=== PATIENT | male | born 1970 | race Two or more races ===

== ENCOUNTER 2016-12-12 14:19 | Emergency (ER) | payer OTHER ==
[~2016-12-12] VITALS: Ht 162.6 cm; Wt 68.0 kg
[2016-12-12 14:25] VITALS: BP 136/87
[2016-12-12] MEDS ORDERED: Mylanta II UD 30ml ORAL ONE (14:45)
[2016-12-12] MEDS ORDERED: Lidocaine 2% Visc 15ml soln ORAL ONE (14:45)
[2016-12-12] MEDS ORDERED: Famotidine 20 MG/ 2ML VIAL IVP ONE (14:45)
[2016-12-12] MEDS ORDERED: Dicyclomine HCl 10mg/5ml oral soln ORAL ONE (14:45)
[2016-12-12] MEDS ORDERED: Tubing IV Cassette IV ONE (15:07)
[2016-12-12] MEDS ORDERED: NKM (15:37)
[2016-12-12 16:00] LABS: TROPONIN I < 0.30 ng/mL (<=0.30)
[2016-12-12 16:02] LABS: ALANINE AMINOTRANSFERASE 44 U/L (3-41); ALBUMIN/GLOBULIN RATIO 1.5 (1.0-2.7); ANION GAP 13 (5-15); ASPARTATE AMINO TRANSFERASE 27 U/L (5-40); CALCIUM 9.7 mg/dL (8.6-10.2); CARBON DIOXIDE 26 mEQ/L (20-30); CHLORIDE 102 mEQ/L (98-107); GLOMERULAR FILTRATION RATE > 60 mL/min (>60); HEMOLYSIS 7; LIPASE 39 U/L (< 60); POTASSIUM 3.7 mEQ/L (3.4-4.9); SODIUM 141 mEQ/L (135-145); TOTAL PROTEIN 8.1 g/dL (6.6-8.7)
[2016-12-12 16:08] LABS: BASOPHILS % (AUTO) 1.5 % (0.0-2.0); EOSINOPHILS % (AUTO) 0.7 % (0.0-3.0); LYMPHOCYTES % (AUTO) 17.1 % (20.0-45.0); MEAN CORPUSCULAR HEMOGLOBIN 32.1 PG (27.0-31.0); MEAN CORPUSCULAR HGB CONC 34.9 G/DL (32.0-36.0); MEAN CORPUSCULAR VOLUME 92 FL (80-99); MEAN PLATELET VOLUME 16.4 FL (6.5-10.1); NEUTROPHILS % (AUTO) 75.7 % (45.0-75.0); PLATELET COUNT 124 K/UL (150-450); RED BLOOD COUNT 5.02 M/UL (4.70-6.10); RED CELL DISTRIBUTION WIDTH 11.7 % (11.6-14.8); WHITE BLOOD COUNT 9.8 K/UL (4.8-10.8)
[2016-12-12] MEDS ORDERED: Morphine Sulfate 4mg/ml Inj IVP ONE (16:15)
[2016-12-12 17:00] VITALS: BP 125/83
[2016-12-12] MEDS ORDERED: BENTYL10 MG ORAL (17:27)
[2016-12-12] MEDS ORDERED: RANITIDINE HCL150 MG ORAL (17:27)
[2016-12-12 18:10] VITALS: BP 125/83
--- NOTE | 2016-12-12 21:28 | Emergency Room Report ---
History of Present Illness General Chief Complaint: General Complaint Source: Patient Present Illness HPI 46-year-old male presents ED complaining of abdominal pain. States pain started yesterday evening. Pain is epigastric, cramping, nonradiating. 9 out of 10. Denies fevers or chills. Denies chest pain or shortness of breath. No other aggravating relieving factors. Denies any other associated Allergies: Coded Allergies: No Known Allergies (Unverified , 12/12/16) Patient History Past Medical History: none Past Surgical History: none Pertinent Family History: none Social History: Denies: smoking, alcohol use, drug use Immunizations: UTD Reviewed Nursing Documentation: PMH: Agreed, PSxH: Agreed Nursing Documentation-PMH Past Medical History: No Stated History Review of Systems All Other Systems: negative except mentioned in HPI Physical Exam Vital Signs Date Time Temp Pulse Resp B/P (MAP) Pulse Ox O2 Delivery O2 Flow Rate FiO2 12/12/16 14:25 97.3 66 18 136/87 96 Room Air Sp02 EP Interpretation: reviewed, normal General Appearance: no apparent distress, alert, GCS 15, non-toxic Head: normocephalic, atraumatic Eyes: bilateral eye normal inspection, bilateral eye PERRL ENT: hearing grossly normal, normal pharynx, no angioedema, normal voice Neck: full range of motion, supple/symm/no masses Respiratory: chest non-tender, lungs clear, normal breath sounds, speaking full sentences Cardiovascular #1: regular rate, rhythm, no edema Cardiovascular #2: 2+ carotid (R), 2+ carotid (L), 2+ radial (R), 2+ radial (L) , 2+ dorsalis pedis (R), 2+ dorsalis pedis (L) Gastrointestinal: normal bowel sounds, soft, non-distended, no guarding, no rebound, tenderness - epigastric Rectal: deferred Genitourinary: normal inspection, no CVA tenderness Musculoskeletal: back normal, gait/station normal, normal range of motion, non- tender Neurologic: alert, oriented x3, responsive, motor strength/tone normal, sensory intact, speech normal Psychiatric: judgement/insight normal, memory normal, mood/affect normal, no suicidal/homicidal ideation Reflexes: 3+ bicep (R), 3+ bicep (L), 3+ tricep (R), 3+ tricep (L), 3+ knee (R) , 3+ knee (L) Skin: normal color, no rash, warm/dry, well hydrated Lymphatic: no adenopathy Medical Decision Making Diagnostic Impression: Primary Impression: Gastroenteritis ER Course Hospital Course 46-year-old M presents to ED with abdominal pain Differential diagnosis includes-appendicitis, cholecystitis, small bowel obstruction, gastritis, Clinical course Patient placed on stretcher. After initial history and physical I ordered labs , IV fluids, Pepcid, Zofran, GI cocktail Labs - no leukocytosis, electrolytes ok, LFTs normal Patient states pain persists, given IV morphine and CT scan ordered CT scan shows no acute pathology , evidence of enteritis Upon reassessment, patient states pain has improved. Given improvement in symptoms and lack of acute findings, I believe patient can be safely discharged to home. Patient agrees with plan I feel this is a highly complex case requiring extensive working including EKG/ Rhythm strip, Xray/CT/US, Blood/urine lab work, repeat exams while in ED, and administration of strong opiates/narcotics for pain control, admission to hospital or close patient follow up. Diagnosis - gastroenteritis Stable and discharged to home with Rx Bentyl, Zantac. Followup with PMD. Return to ED if symptoms recur or worsen Labs Test 12/12/16 14:55 White Blood Count 9.8 K/UL (4.8-10.8) Red Blood Count 5.02 M/UL (4.70-6.10) Hemoglobin 16.1 G/DL (14.2-18.0) Hematocrit 46.2 % (42.0-52.0) Mean Corpuscular Volume 92 FL (80-99) Mean Corpuscular Hemoglobin 32.1 PG (27.0-31.0) Mean Corpuscular Hemoglobin Concent 34.9 G/DL (32.0-36.0) Red Cell Distribution Width 11.7 % (11.6-14.8) Platelet Count 124 K/UL (150-450) Mean Platelet Volume 16.4 FL (6.5-10.1) Neutrophils (%) (Auto) 75.7 % (45.0-75.0) Lymphocytes (%) (Auto) 17.1 % (20.0-45.0) Monocytes (%) (Auto) 5.0 % (1.0-10.0) Eosinophils (%) (Auto) 0.7 % (0.0-3.0) Basophils (%) (Auto) 1.5 % (0.0-2.0) Sodium Level 141 mEQ/L (135-145) Potassium Level 3.7 mEQ/L (3.4-4.9) Chloride Level 102 mEQ/L (98-107) Carbon Dioxide Level 26 mEQ/L (20-30) Anion Gap 13 (5-15) Blood Urea Nitrogen 22 mg/dL (7-23) Creatinine 1.0 mg/dL (0.7-1.2) Estimat Glomerular Filtration Rate > 60 mL/min (>60) Glucose Level 111 mg/dL (74-106) Calcium Level 9.7 mg/dL (8.6-10.2) Total Bilirubin 0.4 mg/dL (0.0-1.2) Aspartate Amino Transf (AST/SGOT) 27 U/L (5-40) Alanine Aminotransferase (ALT/SGPT) 44 U/L (3-41) Alkaline Phosphatase 71 U/L (40-129) Troponin I < 0.30 ng/mL (<=0.30) Total Protein 8.1 g/dL (6.6-8.7) Albumin 4.9 g/dL (3.5-5.2) Globulin 3.2 g/dL Albumin/Globulin Ratio 1.5 (1.0-2.7) Lipase 39 U/L (< 60) CT/MRI/US Diagnostic Results CT/MRI/US Diagnostic Results : Imaging Test Ordered: CT A/P Impression no acute process. enteritis Last Vital Signs Date Time Temp Pulse Resp B/P (MAP) Pulse Ox O2 Delivery O2 Flow Rate FiO2 12/12/16 18:10 97.3 59 16 125/83 96 Room Air Status: improved Disposition: HOME, SELF-CARE Condition: Stable Scripts Ranitidine Hcl* (ZANTAC*) 150 Mg Tablet 150 MG ORAL TWICE A DAY, #30 TAB Prov: RADHA CHEATHAM M.D. 12/12/16 Dicyclomine Hcl* (BENTYL*) 10 Mg Capsule 10 MG ORAL FOUR TIMES A DAY, #20 CAP Prov: RADHA CHEATHAM M.D. 12/12/16 Referrals: EDELMIRA SEN (PCP) Patient Instructions: Viral Gastroenteritis, Adult, [id number] RADHA CHEATHAM M.D. Dec 12, 2016 21:28
--- NOTE | 2016-12-13 08:54 | Diagnostic Imaging Report ---
Clinical Indication: ABD PAIN upper abdominal cramping pain with diarrhea Technique: No oral contrast utilized, per emergency room physician request IV administration nonionic contrast. Venous phase spiral acquisition obtained through the abdomen and pelvis. Multiplanar reconstructions were generated. Total dose length product 725 mGycm. CTDIvol(s) 12 mGy. Dose reduction achieved using automated exposure control Comparison: None Findings: The appendix is normal. There is colonic diverticulosis. There is no evidence of diverticulitis. There may be slight thickening of the wall of the descending and sigmoid colon, but suspect that this is just an artifact of under distention. Small bowel loops are mildly dilated, fluid-filled. Some of the small bowel loops demonstrate mild wall thickening. The stomach is distended. There is a transition to normal caliber ileum in the mid lower abdomen, but the terminal ileum is dilated and fluid-filled as well. The distal esophagus and duodenum are unremarkable. No free or loculated intraperitoneal air or fluid is evident. The liver demonstrates a cyst in segment 4B. The gallbladder, bile ducts, pancreas, spleen, adrenals, kidneys are unremarkable. No mesenteric or retroperitoneal mass or adenopathy. No pelvic mass or adenopathy. The lung bases demonstrate posterior dependent atelectatic changes as well as some inferior lingular scarring or atelectasis the bones demonstrate bilateral L5 spondylolysis. There is minimal grade 1 L5 on S1 spondylolisthesis. Impression: Mildly dilated fluid-filled and occasionally thickwalled small bowel loops. Most likely represents enteritis, particularly given stated clinical history. Presence of a transition point does raise the possibility of small bowel obstruction, however. Correlate with clinical findings Equivocally mildly thickwalled distal colon. Probably artifact of under distention, component of colitis not excludable Bilateral L5 spondylolysis. Associated minimal grade 1 L5 on S1 spondylolisthesis Colonic diverticulosis. No evidence of diverticulitis Dependent basilar pulmonary atelectatic changes Incidental finding of small cyst in segment IVb of the liver The CT scanner at [facility] is accredited by the [employer] and the scans are performed using protocols designed to limit radiation exposure to as low as reasonably achievable to attain images of sufficient resolution adequate for diagnostic evaluation.
== END 2016-12-12 18:10 | disposition home or self-care (01) ==
LOC: EMR 17:50
DX: K52.9 Noninfective gastroenteritis and colitis, unspecified (principal)
CPT/HCPCS: 36415; 74177; 80053; 83690; 84484; 85025; 96361; 96374; 96375; 99284; J2270; J2405; J7040; Q9967; S0028